=== PATIENT | male | born 1960 | race Caucasian/White ===

== ENCOUNTER 2024-10-15 07:21 | Emergency (ER) | payer OTHER, SELFPAY ==
[2024-10-15 07:27] VITALS: BP 168/112; PULSE 75; O2SAT 97; BMI 40.4
--- NOTE | 2024-10-15 07:33 | ED.UPPEXIN1 ---
HPI HPI - Extremity Injury (Upper) General Chief Complaint: Extremity Injury, Upper Stated Complaint: POSSIBLE BROKEN WRIST Time Seen by Provider: 10/15/24 07:32 Source: patient Mode of arrival: walk-in Limitations: no limitations History of Present Illness HPI narrative: The patient comes to the ER with a left arm pain that started after he fell down, there is a family physician, he is coming after he slipped while he was cleaning his car from ice. The patient is complaining only of left hand pain and left wrist pain Related Data Previous Rx's ?Medication ?Instructions ?Recorded oxycodone-acetaminophen 5 mg-325 1 tab PO Q8H PRN pain 3 days #9 10/15/24 mg tablet (Percocet) tabs Allergies Allergy/AdvReac Type Severity Reaction Status Date / Time erythromycin base Allergy Severe Hives Verified 10/15/24 07:52 Opioid HPI Opioid Management Most Recent Pain and Opioid Data: Last Pain Scale 8 10/15/24 07:33 10/15/24 Last ED Pain Assessment 10/15/24 07:33 Review of Systems ROS Status of ROS 10 or more systems reviewed and unremarkable except as noted in history and below PFSH PFSH Social History Little interest or pleasure in doing things: not at all Feeling down, depressed, or hopeless: not at all Exam Narrative Exam Narrative: Nurses notes and vital signs reviewed and patient is not hypoxic. Left upper extremity; the patient have tenderness upon palpation of the scaphoid area as well as the whole wrist area The patient have no vascular injury detected good capillary refill General: Well-appearing and in no apparent distress. Skin: Warm, dry, no pallor noted. No rash. Head: Normocephalic, atraumatic. Neck: Supple, non-tender. Musculoskeletal: normal ROM, no calf or popliteal tenderness, no lower extremity edema/swelling Constitutional Vital Signs, click to edit/add: Last Vital Signs Pulse 75 10/15/24 07:27 Resp 20 10/15/24 07:27 BP 158/98 H 10/15/24 09:10 Pulse Ox 97 10/15/24 07:27 Course Vital Signs Vital signs: Vital Signs Pulse Rate 75 10/15/24 07:27 Respiratory Rate 20 10/15/24 07:27 Blood Pressure 168/112 H 10/15/24 07:27 Pulse Oximetry 97 10/15/24 07:27 Pulse Rate 75 01/20/25 07:27 Respiratory Rate 20 10/15/24 07:27 Blood Pressure 158/98 H 10/15/24 09:10 Pulse Oximetry 97 10/15/24 07:27 MDM - Extremity Injury (Upper) MDM Narrative Medical decision making narrative: The patient x-ray of the left wrist and forearm and hand showed that the patient have a distal radial impacted angulated fracture and also styloid process of the ulna was fractured The patient case was discussed with Dr. Brown and orthopedic service and he mentioned that the patient mostly will need surgery he will follow-up with him on Tuesday in his [place] office Patient had a volar splint applied Sling provided and Percocet for pain control Patient mostly will need surgery The patient is to follow up with primary care physician in next 2-3 days or to return to the emergency department should any of the signs or symptoms worsen or new symptoms develop. The patient agrees with the following Diagnosis and Treatment plan and the patient will be discharged home. Discharge Plan Discharge Chief Complaint: Extremity Injury, Upper Clinical Impression: Fracture of distal end of radius with dorsal angulation, Fracture of ulnar styloid Patient Disposition: Home, Self-Care Time of Disposition Decision: 08:58 Condition: Good Prescriptions / Home Meds: New oxycodone-acetaminophen [Percocet] 5-325 mg tablet 1 tab PO Q8H PRN (Reason: pain) 3 Days Qty: 9 0RF Print Language: South African Instructions: Arm Fracture in Adults (DC) Additional Instructions: please call Dr Brown for follow up appointment Tuesday in [place] office Referrals: Physician,Non-Staff, [Primary Care Provider] - 1 week Redd Brown MD [Physician] - As soon as possible ([address] [place] [address] [address] [address] phone number ) Discharge Date/Time: 10/15/24 09:13
--- NOTE | 2024-10-15 07:53 | XR_ITS ---
[address] [address] Patient Name: JOHN BUSTAMANTE MRN: [id number] date: 1960 Sex: M Assigned Patient Location: ER Current Patient Location: ER Accession/Order Number: [id number] Exam Date: 10/15/2024 07:45 Report Date: 10/15/2024 08:06 At the request of: SETH DELEON Procedure: XR forearm LT 2V EXAM: XR forearm LT 2V, XR wrist LT 2V, XR hand LT 2V HISTORY: fall pain COMPARISON: None. XR/XR forearm LT 2V IMPRESSION: 1. There is a comminuted and displaced as well as impacted fracture of the distal radial metaphysis. There is mild dorsal angulation. 2. Mildly displaced ulnar styloid fracture. Electronically authenticated by: TAMMIE ORTEGA Date: 10/15/2024 08:06
--- NOTE | 2024-10-15 07:53 | XR_ITS ---
[address] [address] Patient Name: JOHN BUSTAMANTE MRN: [id number] date: 1960 Sex: M Assigned Patient Location: ER Current Patient Location: ER Accession/Order Number: [id number] Exam Date: 10/15/2024 07:45 Report Date: 10/15/2024 08:06 At the request of: SETH DELEON Procedure: XR hand LT 2V EXAM: XR forearm LT 2V, XR wrist LT 2V, XR hand LT 2V HISTORY: fall pain COMPARISON: None. XR/XR hand LT 2V IMPRESSION: 1. There is a comminuted and displaced as well as impacted fracture of the distal radial metaphysis. There is mild dorsal angulation. 2. Mildly displaced ulnar styloid fracture. Electronically authenticated by: TAMMIE ORTEGA Date: 10/15/2024 08:06
--- NOTE | 2024-10-15 07:53 | XR_ITS ---
[address] [address] Patient Name: JOHN BUSTAMANTE MRN: [id number] date: 1960 Sex: M Assigned Patient Location: ER Current Patient Location: ER Accession/Order Number: [id number] Exam Date: 10/15/2024 07:45 Report Date: 10/15/2024 08:06 At the request of: SETH DELEON Procedure: XR wrist LT 2V EXAM: XR forearm LT 2V, XR wrist LT 2V, XR hand LT 2V HISTORY: fall pain COMPARISON: None. XR/XR wrist LT 2V IMPRESSION: 1. There is a comminuted and displaced as well as impacted fracture of the distal radial metaphysis. There is mild dorsal angulation. 2. Mildly displaced ulnar styloid fracture. Electronically authenticated by: TAMMIE ORTEGA Date: 10/15/2024 08:06
[2024-10-15 09:10] VITALS: BP 158/98
== END 2024-10-15 09:13 | disposition home or self-care (01) ==
PROVIDERS: Emergency Provider Emergency Medicine
DX: S52.592A Other fractures of lower end of left radius, initial encounter for closed fracture (principal); S52.612A Displaced fracture of left ulna styloid process, initial encounter for closed fracture; W00.0XXA Fall on same level due to ice and snow, initial encounter
CPT/HCPCS: 29125; 73090; 73100; 73120; 99283

== ENCOUNTER 2024-10-18 08:02 | Outpatient (OUT) | payer OTHER, SELFPAY ==
--- OUTSIDE RECORDS SUMMARY | 2024-10-18 08:07 | XMS_ITS | CCD ---
Author Organization [facility] ion Partnership [facility] Care Team Providers Care Managed Care Analyst Name Role Phone Bobby Reyes Admitting Unavailable Bobby Reyes Attending Unavailable Provider, None Primary Care Unavailable Results Test Name Value Interpretation Reference Range Facil ity Lab - Other Lab Resultson Lab - Other Lab Results [id number]#[id number] Normal [facility] QuantiFERON-TB Gold Pluson 0 11-01-2023 QuantiFERON Incubation Incubation performed. Invalid Interpretation Code [facility] Comment on above: Result Comment: Perf ormed At: [employer] [address] [id number] Carlos Bender PhD Ph:[phone] Performed By: #### 9 [id number], [id number] #### [facility] (DEFAULT) [address] [place] [address] QuantiFERON-TB Gold Plus Negative Invalid Interpretation Code Negative [facility] Comment on above: Result Comment: No r esponse to M tuberculosis antigens detected. Infection with M tuberculosis is unlikely, but high risk individuals should be considered for additional testing (ATS/IDSA/CDC Clinical Practice Guidelines, 2017). The reference range is an Antigen minus Nil result of <0.35 IU/mL. Chemiluminescence immunoassay methodology Performed At: [email or web address] [id number] Carlos Bender PhD Ph:[phone] Performed By: #### 5 [id number], [id number] #### [facility] (DEFAULT) [address] [place] [address] HBSab Qnt LCon 10-29-2023 Hep B Surf Ab Quant LC <3.1 Low Immunity>9.9 [facility] Comment on above: Result Comment: Stat us of Immunity Anti-HBs Level Inconsistent with Immunity 0.0 - 9.9 Consistent with Immunity >9.9 Performed At: [facility] [address] [place] [id number] Carlos Bender PhD Ph:[phone] Performed By: #### 7 [id number] #### [facility] (DEFAULT) [address] [place] [address] Measles/Mumps/Rubella Immuni ty LCon 10-29-2023 Mumps Abs, IgG LC <9.0 Low Immune >10.9 [facility] Comment on above: Result Comment: Nega tive <9.0 Equivocal 9.0 - 10.9 Positive >10.9 A positive result generally indicates past exposure to Mumps virus or previous vaccination. Performed At: [facility] [address] [place], [place] [id number] Carlos Bender PhD Ph:[phone] Performed By: #### 0 [id number], [id number] #### [facility] (DEFAULT) [address] [place] [address] Rubella Antibodies, IgG LC 25.70 index Invalid Interpretation Code Immune >0.99 [facility] Comment on above: Result Comment: Non- immune <0.90 Equivocal 0.90 - 0.99 Immune >0.99 Performed By: #### 1 [id number], [id number], [id number] #### [facility] (DEFAULT) [address] [place] [address] Rubeola Ab, IgG, EIA LC >300.0 Invalid Interpretation Code Immune >16.4 [facility] Comment on above: Result Comment: Nega tive <13.5 Equivocal 13.5 - 16.4 Positive >16.4 Presence of antibodies to Rubeola is presumptive evidence of immunity except when acute infection is suspected. Performed By: #### 4 [id number], [id number] #### [facility] (DEFAULT) [address] [place] [address] Nicotine Metabolite, Urine L Con 10-29-2023 Cotinine LC Negative Invalid Interpretation Code Aectbo=551 [facility] Comment on above: Result Comment: Perf ormed At: [facility] [place] [address] [place], [place] [id number] Alec Martin PhD Ph:[phone] Performed By: #### 1 [id number], [id number] #### [facility] (DEFAULT) [address] [place] [address] Drug Test Panel 10on 024 Drug Screen Complete Collected Normal [facility] Comment on above: Performed By: #### 1 [id number], [id number] #### [facility] (DEFAULT) [address] [place] [address] Encounters Encounter Date Encounter Type Care Provider Facility Start: 10-28-2023 End: 10-29-2023 ambulatory Bobby Damian [place] Facility:[facility] Summary Purpose Family History No Family History Records Found Advance Directives No Advanced Directives Records Found Additional Source Comments (unrecognized sect ion and content) No Status Records Found INFORMATION SOURCE (unrecogn ized section and content) DATE CREATED AUTHOR 11/01/2023 [facility] FOR RECORDS PERTAINING TO PATIENTS WHO ARE OR HAVE BEEN ENROLLED IN A CHEMICAL DEPENDENCY/SUBSTANCEABUSE PROGRAM, SOME INFORMATION MAY BE OMITTED. This clinical summary was aggregated from multiple sources. Caution should be exercised in using it in the provision of clinical care. This summary normalizes information from multiple sources, and as a consequence, information in this document may materially change the coding, format and clinical context of patient data. In addition, data may be omitted in some cases. CLINICAL DECISIONS SHOULD BE BASED ON THE PRIMARY CLINICAL RECORDS. [employer] provides no warranty or guarantee of the accuracy or completeness of information in this document.
--- NOTE | 2024-10-18 08:12 | ECG_ITS ---
The [facility] Test Date: 2024-10-18 Pat Name: JOHN BUSTAMANTE Department: Room: - Gender: Male Resolution Specialist: : 1960 Requested By: Redd Brown Order Number: [id number] Reading MD: JENNI HSU Measurements Intervals [place] Rate: 52 P: 13 UT: 196 QRS: 9 QRSD: 118 T: -27 QT: 404 QTc: 379 Interpretive Statements SINUS BRADYCARDIA MODERATE INTRAVENTRICULAR CONDUCTION DELAY [110+ ms QRS DURATION] NONSPECIFIC T-WAVE ABNORMALITY, can't exclude inferolateral ischemia No previous ECG available for comparison Electronically Signed On 10-18-2024 17:54:34 EST by JENNI HSU
--- NOTE | 2024-10-18 08:12 | XR_ITS ---
The [address] [address] Patient Name: JOHN BUSTAMANTE MRN: [id number] date: 1960 Sex: M Assigned Patient Location: [facility] Current Patient Location: [facility] Accession/Order Number: [id number] Exam Date: 10/18/2024 09:10 Report Date: 10/18/2024 10:50 At the request of: [employer]ON [employer] Procedure: XR chest 2V EXAMINATION: XR chest 2V HISTORY: Preop exam COMPARISON: No relevant comparison available. TECHNIQUE: PA and lateral FINDINGS: LUNGS: No significant pulmonary parenchymal abnormalities. VASCULATURE: No increased pulmonary vasculature. PLEURA: No pneumothorax, effusion, or pleural thickening. CARDIAC: No cardiomegaly or cardiac silhouette abnormality. MEDIASTINUM: No visible mass or adenopathy. Left bipolar pacemaker BONES: No fracture or visible bone lesion. OTHER: Negative. XR/XR chest 2V IMPRESSION: No acute cardiopulmonary process Electronically authenticated by: BREEZY LOPEZ Date: 10/18/2024 10:50
[2024-10-18 09:25] LABS: Basophils Percent Auto 0.5 % (0.2-2.0); Eosinophils Absolute Auto 0.3 10^3/uL (0.0-0.7); Eosinophils Percent Auto 5.4 % (0.9-7.0); Hematocrit 44.3 % (42.0-54.0); Hemoglobin 15.1 g/dL (14.0-18.0); Immature Granulocytes Abs Auto 0.02 10^3/uL (0.00-0.03); Immature Granulocytes Pct Auto 0.3 % (0.0-0.5); Lymphocytes Absolute Auto 1.3 10^3/uL (1.2-3.8); Lymphocytes Percent Auto 23.3 % (20.5-60.0); Mean Corpuscular HGB Conc 34.1 g/dL (29.9-35.2); Mean Corpuscular Hemoglobin 32.5 pg (25.9-34.0); Mean Corpuscular Volume 95.5 fL (80.0-94.0); Mean Platelet Volume 10.4 fL (9.5-13.5); Monocytes Absolute Auto 0.5 10^3/uL (0.3-0.8); Neutrophils Absolute Auto 3.6 10^3/uL (1.4-6.5); Neutrophils Percent Auto 62.5 % (43.0-75.0); Platelet Count 134 10^3/uL (150-450); Red Blood Count 4.64 10^6/uL (4.70-6.10); Red Cell Distribution Width 12.5 % (11.0-15.0); White Blood Count 5.8 10^3/uL (4.0-11.0)
[2024-10-18 09:30] LABS: INR 1.02; Partial Thromboplastin Time 28.5 sec (22.3-36.2); Prothrombin Time 10.8 sec (9.0-11.6)
[2024-10-18 09:52] LABS: Anion Gap 14.3; BUN Creatinine Ratio 13.3; Calcium 8.9 mg/dL (8.5-10.1); Carbon Dioxide 22.4 mmol/L (21.0-32.0); Chloride 106 mmol/L (98-107); Estimated GFR (African America >60 (>=60 mL/min/1.73m^2); Estimated GFR (Non-African Ame >60 (>=60 mL/min/1.73m^2); Glucose 140 mg/dL (74-106); Potassium 4.7 mmol/L (3.5-5.1); Sodium 138 mmol/L (136-145)
== END 2024-10-18 08:03 | disposition home or self-care (01) ==
LOC: PST 08:03
PROVIDERS: Visit Provider Orthopaedic Surgery
DX: Z01.810 Encounter for preprocedural cardiovascular examination (principal); Z01.812 Encounter for preprocedural laboratory examination; S52.552A Other extraarticular fracture of lower end of left radius, initial encounter for closed fracture; S52.612A Displaced fracture of left ulna styloid process, initial encounter for closed fracture; I10 Essential (primary) hypertension
CPT/HCPCS: 71046; 80048; 85025; 85610; 85730; 93005

== ENCOUNTER 2024-10-18 12:56 | Outpatient (OUT) | payer OTHER, SELFPAY ==
--- NOTE | 2024-10-18 13:12 | CA_ITS ---
Patient Name: JOHN BUSTAMANTE MR#: [id number] : 1960 Exam Date: 10/18/2024 Ordering Doctor: DR SEBAS HIDALGO M.D. ECHOCARDIOGRAM REPORT PROCEDURE: CA ECHO DOPPLER COMPLETE INDICATIONS: Pre op noncardiac surgery COMPARISON: None. DESCRIPTION: COMPLETE ECHOCARDIOGRAM Real-time transthoracic echocardiography with 2D, M-mode, spectral and color flow Doppler performed. QUALITY: Technical quality was good. LEFT VENTRICLE: Normal chamber size. Moderate to severe left ventricular hypertrophy. LV EF: Global left ventricular systolic function is low normal; visually estimated ejection fraction is 50-55%. Abnormal septal motion; likely related to paced rhythm. DIASTOLIC: Grade 1 diastolic dysfunction. ATRIAL SEPTUM: Inadequately seen. LEFT ATRIUM: Mild dilatation. RIGHT ATRIUM: Mild dilatation. Pacer wire present. RIGHT VENTRICLE: Normal chamber size. Normal right ventricular systolic function. Pacer wire present. TRICUSPID VALVE: Normal mobility and thickness. No stenosis with trivial regurgitation. Mild pulmonary hypertension. RVSP 36mmHg MITRAL VALVE: Normal mobility and thickness. No evidence of mitral valve stenosis. There is no mitral annular calcification. Mild mitral regurgitation. AORTIC VALVE: Normal trileaflet appearance. Mildly calcified aortic valve. Normal leaflet mobility. No evidence of aortic valve stenosis. Trivial aortic regurgitation. AORTIC ROOT: Normal diameter and appearance. Mild dilatation of the ascending aorta measuring 3.7cm. PULMONIC VALVE: Normal thickness and mobility. No stenosis. Trivial regurgitation. PERICARDIUM: Anterior free space; trivial effusion versus fat pad. IVC: Collapses with inspirations. Normal size. CONCLUSION: 1. Global left ventricular systolic function is low normal limits; visually estimated ejection fraction is 50 to 55% 2. Normal right ventricular size and systolic function 3. Moderate to severe left ventricular hypertrophy 4. Grade 1 diastolic dysfunction 5. Biatrial dilatation 6. Mildly elevated right ventricular systolic pressure; RVSP 36 mmHg 7. Mild mitral regurgitation 8. Mild dilatation of the ascending aorta 9. Anterior free space; trivial effusion versus fat pad Adult Echocardiography Procedure Report Left Ventricle LVEDD (3.7 - 5.6 cm): 5.52 cm LVESD (2.2 - 4.0 cm): 4.15 cm LVIVS thickness (0.6 - 1.2 cm): 1.54 cm LVPW thickness (0.5 - 1.0 cm): 1.64 cm e': 0.09 m/s E - e': 6.43 LVOT Max Gradient: 3.15 mm[Hg] LVOT Area (cm2): 0.89 m/s Peak Velocity (LVOT): 0.89 m/s Mean Velocity (LVOT): 0.64 m/s LVOT Diameter 2.26 cm Left Atrium LA Volume Index (2D A2C): 42.78 ml/m2 Left Atrium Systolic Dimension: 4.43 cm Mitral Valve MV E to A Ratio: 0.64 Mitral Valve A-Wave Peak Velocity: 0.86 m/s Mitral Valve E-Wave Peak Velocity: 0.55 m/s Right Ventricle RV Internal Diastolic Dimension: 3.57 cm Aorta AO Root Diam: 3.75 cm Ascending Ao Diam: 3.74 cm Aortic Valve AoV Area (Peak Manuel): 2.24 cm2, 2.24 cm2 AoV Area (VTI): 2.32 cm2, 2.32 cm2 Peak Velocity(Antegrade Flow): 1.59 m/s Peak Gradient(Antegrade Flow): 10.06 mm[Hg] Mean Velocity(Antegrade Flow): 1.11 m/s Mean Gradient(Antegrade Flow): 5.56 mm[Hg] Velocity Time Integral: 37.22 cm Tricuspid Valve Peak Velocity (Regurgitant Flow): 2.41 m/s, 2.46 m/s, 2.86 m/s Pulmonic Valve Mean Gradient: 3.61 mm[Hg], 4.24 mm[Hg], 2.92 mm[Hg] Mean Velocity: 0.88 m/s, 0.99 m/s, 0.77 m/s Peak Velocity: 1.29 m/s Peak Gradient: 6.65 mm[Hg], 7.06 mm[Hg], 6.15 mm[Hg] Right Atrium Right Atrium Systolic Pressure: 76.67 ml, 76.67 ml Dictated by: Sebas Hidalgo M.D. on 10/18/2024 at 15:31 Approved by: Sebas Hidalgo M.D. on 10/18/2024 at 15:39
--- OUTSIDE RECORDS SUMMARY | 2024-10-18 13:25 | XMS_ITS | CCD ---
Author Organization [facility]ini[facility] Care Team Providers Care Med Dir Name Role Phone Bobby Reyes Admitting Unavailable Bobby Reyes Attending Unavailable Provider, None Primary Care Unavailable Results Test Name Value Interpretation Reference Range Facil ity Lab - Other Lab [facility] Lab - Other Lab Results [id number] 345C#1.00OTGTIFF Normal [facility] QuantiFERON-TB Gold Pluson 0 11-01-2023 QuantiFERON Incubation Incubation performed. Invalid Interpretation Code [facility] Comment on above: Result Comment: Perf ormed At: [employer] [address] [id number] Carlos Bender PhD Ph:[phone] Performed By: #### 1 [id number], [id number] #### [facility] (DEFAULT) [address] [place] [address] QuantiFERON-TB Gold Plus Negative Invalid Interpretation Code Negative [facility] Comment on above: Result Comment: No r esponse to M tuberculosis antigens detected. Infection with M tuberculosis is unlikely, but high risk individuals should be considered for additional testing (ATS/IDSA/CDC Clinical Practice Guidelines, 2017). The reference range is an Antigen minus Nil result of <0.35 IU/mL. Chemiluminescence immunoassay methodology Performed At: [facility] [id number] Carlos Bender PhD Ph:[phone] Performed By: #### 6 [id number], [id number] #### [facility] (DEFAULT) [address] [place] [address] HBSab Qnt LCon 10-29-2023 Hep B Surf Ab Quant LC <3.1 Low Immunity>9.9 [facility] Comment on above: Result Comment: Stat us of Immunity Anti-HBs Level Inconsistent with Immunity 0.0 - 9.9 Consistent with Immunity >9.9 Performed At: [facility] [address] [place] [id number] Carlos Bender PhD Ph:[phone] Performed By: #### 3 [id number], [id number], [id number] #### [facility] (DEFAULT) [address] [place] [address] Measles/Mumps/Rubella Immuni ty LCon 10-29-2023 Mumps Abs, IgG LC <9.0 Low Immune >10.9 [facility] Comment on above: Result Comment: Nega tive <9.0 Equivocal 9.0 - 10.9 Positive >10.9 A positive result generally indicates past exposure to Mumps virus or previous vaccination. Performed At: [facility] [address] [place], [place] [id number] Carlos Bender PhD Ph:[phone] Performed By: #### 0 [id number], [id number], [id number] #### [facility] (DEFAULT) [address] [place] [address] Rubella Antibodies, IgG LC 25.70 index Invalid Interpretation Code Immune >0.99 [facility] Comment on above: Result Comment: Non- immune <0.90 Equivocal 0.90 - 0.99 Immune >0.99 Performed By: #### 8 [id number], [id number], [id number] #### [facility] (DEFAULT) [address] [place] [address] Rubeola Ab, IgG, EIA LC >300.0 Invalid Interpretation Code Immune >16.4 [facility] Comment on above: Result Comment: Nega tive <13.5 Equivocal 13.5 - 16.4 Positive >16.4 Presence of antibodies to Rubeola is presumptive evidence of immunity except when acute infection is suspected. Performed By: #### 4 [id number], [id number], [id number] #### [facility] (DEFAULT) [address] [place] [address] Nicotine Metabolite, Urine L Con 10-29-2023 Cotinine LC Negative Invalid Interpretation Code Nowans=274 [facility] Comment on above: Result Comment: Perf ormed At: [facility] [place] [address] [place], [place] [id number] Alec Martni PhD Ph:[phone] Performed By: #### 1 [id number], [id number] #### [facility] (DEFAULT) [address] [place] [address] Drug Test Panel 10on 024 Drug Screen Complete Collected Normal [facility] Comment on above: Performed By: #### 1 [id number], [id number] #### [facility] (DEFAULT) [address] [place] [address] Encounters Encounter Date Encounter Type Care Provider Facility Start: 10-28-2023 End: 10-29-2023 ambulatory Bobby Damian Conway Facility:[facility] Summary Purpose Family History No Family History Records Found Advance Directives No Advanced Directives Records Found Additional Source Comments (unrecognized sect ion and content) No Status Records Found INFORMATION SOURCE (unrecogn ized section and content) DATE CREATED AUTHOR 11/01/2023 [facility] FOR RECORDS PERTAINING TO PATIENTS WHO ARE [...] BE BASED ON THE PRIMARY CLINICAL RECORDS. [employer] provides no warranty or guarantee of the accuracy or completeness of information in this document.
== END 2024-10-18 12:57 | disposition home or self-care (01) ==
LOC: CARD 13:08
PROVIDERS: Visit Provider Internal Medicine Interventional Cardiology
DX: Z01.818 Encounter for other preprocedural examination (principal); I34.0 Nonrheumatic mitral (valve) insufficiency; Z01.812 Encounter for preprocedural laboratory examination; Z01.810 Encounter for preprocedural cardiovascular examination; S52.552A Other extraarticular fracture of lower end of left radius, initial encounter for closed fracture; S52.612A Displaced fracture of left ulna styloid process, initial encounter for closed fracture; I10 Essential (primary) hypertension
CPT/HCPCS: 71046; 80048; 85025; 85610; 85730; 93005; 93306; 93356

== ENCOUNTER 2024-10-22 11:50 | Day surgery (SDC) | payer OTHER, SELFPAY ==
[2024-10-18 08:30] VITALS: BP 174/97; PULSE 63; TEMP 36.2; O2SAT 95; BMI 43.0
--- NOTE | 2024-10-18 08:58 | PM.PRESUREVA ---
History of Present Illness History of Present Illness Chief complaint: DISPLACED FX LEFT RADIUS AND ULNA Narrative: Mr. Christopher Bhandari 63 year old male. Presents to presurgical testing After he had a slip and fall injury catching himself with his left upper extremity resulting in displaced distal radius extra-articular and ulnar styloid fracture. He reports pain to the left arm with range of motion. He presents today with splint in place. He is scheduled for open reduction internal fixation of left distal radius and ulnar styloid. He is scheduled with Dr. Brown for surgery on 10/22/2024 Review of Systems ROS Narrative REVIEW OF SYSTEMS: Negative except as stated in HPI, ten or more systems reviewed. Constitutional: No fever, chills, weakness ENT: No sore throat or epistaxis Cardiovascular: No edema, chest pain, palpitations, or activity intolerance Respiratory: No shortness of breath, cough, or wheezing Musculoskeletal: Complains of left forearm and wrist pain and discomfort. Gastrointestinal: No abdominal pain, constipation, diarrhea, or vomiting Genitourinary: No dysuria or hematuria Neurological: No numbness, tingling, weakness, or headache Psychiatric: No mood changes PFSH PFSH Medical History (Updated 10/18/24 @ 08:40 by Fidelia Betancourt) Seasonal allergies ?J30.2 - Other seasonal allergic rhinitis (ICD-10) Myocardial infarction ?I21.9 - Acute myocardial infarction, unspecified (ICD-10) Hypertension ?I10 - Essential (primary) hypertension (ICD-10) Surgical History (Updated 10/18/24 @ 08:40 by Fidelia Betancourt) History of heart artery stent ?Z95.5 - Presence of coronary angioplasty implant and graft (ICD-10) History of tonsillectomy ?Z90.89 - Acquired absence of other organs (ICD-10) Family History (Updated 10/18/24 @ 08:37 by Fidelia Betancourt) Other Family history of aneurysm Family history of pancreatic cancer Social History (Updated 10/18/24 @ 08:29 by Fidelia Betancourt) Within the past year, how often did you have a drink containing alcohol: monthly or less Smoking status: Current every day smoker Non-prescribed substance use: denies use Previous occupational history: physician Highest level of school completed/degree received: Professional degree (MD, PATEL, DVM, DDS) Little interest or pleasure in doing things: not at all Feeling down, depressed, or hopeless: not at all Meds Home Medications and Allergies Home Medications ?Medication ?Instructions ?Recorded ?Confirmed ?Type oxycodone-acetaminophen 5 mg-325 1 tab PO Q8H PRN pain 3 days #9 10/15/24 Rx mg tablet (Percocet) tabs atenolol 100 mg tablet mg 10/18/24 History fexofenadine 180 mg tablet 180 mg PO DAILY 10/18/24 10/18/24 History (Miladys Allergy) naproxen 500 mg tablet 500 mg PO DAILY PRN pain 10/18/24 10/18/24 History Allergies Allergy/AdvReac Type Severity Reaction Status Date / Time erythromycin base Allergy Severe Hives Verified 10/18/24 08:22 scallops Allergy Severe Anaphylaxis Verified 10/18/24 08:22 peanuts Allergy Mild Anaphylaxis Uncoded 10/18/24 08:22 Exam Narrative Exam Narrative: Constitutional: Awake, alert, comfortable, well-appearing, nontoxic, interactive, vital signs as charted Head: Normocephalic, atraumatic Eyes: Conjunctiva and lids normal to inspection, pupils normal ENT: Tympanic membranes pearly abel, nonerythematous, noninjected, naris patent, posterior oropharynx clear, oral mucosa moist Neck: Supple, normal appearance, normal range of motion, no meningeal signs, no lymphadenopathy Respiratory: No respiratory distress, breath sounds clear Cardiovascular: Regular rate and rhythm, strong and regular heart tones Abdomen: Nontender, normal bowel sounds, soft, no CVA tenderness Musculoskeletal: Normal gait, please see Dr. Brown's thorough examination of his left wrist and forearm . He has a splint to the left upper extremity sensation is intact to the fingers brisk capillary refill Skin: No rashes or induration, no lesions, only visible skin inspected Neuro: No neurological deficits, normal sensation Psychiatric: Oriented ?3, normal affect Constitutional Vital Signs, click to edit/add: Last Vital Signs Temp 97.1 F L 10/18/24 08:30 Pulse 63 10/18/24 08:30 Resp 20 10/18/24 08:30 BP 174/97 H 10/18/24 08:30 Pulse Ox 95 10/18/24 08:30 O2 Del Method Room Air 10/18/24 08:30 Assessment and Plan Assessment and Plan (1) Fracture of ulnar styloid: (2) Fracture of distal end of radius with dorsal angulation: Plan Diagnosis displaced distal radius extra-articular and ulnar styloid fracture plan for procedure with Dr. Brown on October 22, 2024 for open reduction internal fixation of left distal radius and ulnar styloid fracture
[2024-10-22] VITALS (18 sets, daily range): BP systolic 99–169; BP diastolic 63–100; PULSE 64–88; TEMP 36.4–36.6; O2SAT 92–97; BMI 42.0
--- NOTE | 2024-10-22 | FL_ITS ---
[address] [address] Patient Name: JOHN BUSTAMANTE MRN: [id number] date: 1960 Sex: M Assigned Patient [facility] Current Patient Location: [facility] Accession/Order Number: [id number] Exam Date: 10/22/2024 13:20 Report Date: 10/29/2024 12:04 At the request of: HOUSTON TRAN Procedure: FL fluoroscopy <1hr NON-READ EXAM: FL fluoroscopy <1hr NON-READ HISTORY: TECHNIQUE: FINDINGS: Please see Operative Report. Electronically authenticated by: RADIOLOGIST NO Date: 10/29/2024 12:04
[2024-10-22 12:03] LABS: Basophils Percent Auto 0.6 % (0.2-2.0); Eosinophils Absolute Auto 0.3 10^3/uL (0.0-0.7); Eosinophils Percent Auto 3.7 % (0.9-7.0); Hematocrit 46.6 % (42.0-54.0); Hemoglobin 15.8 g/dL (14.0-18.0); Immature Granulocytes Abs Auto 0.02 10^3/uL (0.00-0.03); Immature Granulocytes Pct Auto 0.3 % (0.0-0.5); Lymphocytes Absolute Auto 1.8 10^3/uL (1.2-3.8); Lymphocytes Percent Auto 25.5 % (20.5-60.0); Mean Corpuscular HGB Conc 33.9 g/dL (29.9-35.2); Mean Corpuscular Hemoglobin 32.8 pg (25.9-34.0); Mean Corpuscular Volume 96.9 fL (80.0-94.0); Monocytes Absolute Auto 0.5 10^3/uL (0.3-0.8); Monocytes Percent Auto 7.7 % (1.7-12.0); Neutrophils Absolute Auto 4.4 10^3/uL (1.4-6.5); Neutrophils Percent Auto 62.2 % (43.0-75.0); Platelet Count 166 10^3/uL (150-450); Red Blood Count 4.81 10^6/uL (4.70-6.10); Red Cell Distribution Width 12.3 % (11.0-15.0)
[2024-10-22] MEDS: LACTATED RINGER'S SOLUTION 1,000 ML 50 ML IV ×2 (12:49→14:46)
[2024-10-22] MEDS: CEFAZOLIN SODIUM 2 GM/50 ML D5W PREMIX IV (13:24)
--- NOTE | 2024-10-22 13:44 | PC.NURSE ---
1256 TIME OUT PERFORMED, 2MG VERSED AND 50 MCG FENTANYL GIVEN AT THIS TIME 1301 CLEANING AREA TO LOOK WITH ULTRASOUND TO FIND INJECTION SITE. 1304 NEEDLE INJECTION BEGAN WITH ROPIVACAINE 1307 BLOCK IS COMPLETED. PATIENT TOLERATED WELL.
--- NOTE | 2024-10-22 14:57 | P.ORPRC_ITS ---
Procedure Note Date of procedure: 10/22/24 Pre-op diagnosis: Greater than 3 part intra-articular distal radius fracture Post-op diagnosis: same as pre-op Procedure: Procedure: 1. Open reduction internal fixation left distal radius fracture Detailed Description of Procedure: After informed consent was obtained the patient brought to the operating room where general anesthetic was administered. Preoperatively regional block was placed. A well-padded proximal arm tourniquet was placed on the right arm was prepped and draped in usual sterile fashion. The arm was elevated, exsanguinated, and the tourniquet was inflated to 200 mmHg. A 6 cm incision made overlying the flexor carpi radialis tendon overlying the distal radius. Blunt dissection was carried down through soft tissue. The flexor carpi radialis tendon was retracted ulnarly along with the flexor pollicis longus muscle and tendon. Pronator quadratus was incised in an L- shaped fashion off of the bone. Distal radius fracture was identified at this point and found to be intra-articular and comminuted. Using a combination of traction and manipulation and reduction was performed and appropriate reduction was confirmed under x-ray. A Synthes bi column distal radius plate was then placed and provisionally held into place with K wires. This was adjusted until the appropriate position was achieved under multiple fluoroscopy views. The plate was then first fixed with a 2.7 bicortical nonlocking screw in the oblong hole in the shaft. Holding the distal fragments reduced a total of 6 unicortical 2.4 mm locking screws were placed at the distal fragments followed by an additional 2 screws placed in the shaft in a bicortical locking fashion. Final x-rays in multiple planes revealed a reduced distal radius fracture with appropriate implant placement and lengths. Wound was irrigated. Pronator quadratus was repaired with an 0 Vicryl suture. Skin was closed with observable suture in layers. Well-padded dressing was placed followed by a fiberglass volar splint. Tourniquet was deflated. Patient was awakened and brought to the recovery room in stable condition. There are no intraoperative or immediate postoperative complications. Anesthesia: regional and General-LMA Surgeon: Redd Brown Estimated blood loss (mL): 5 Pathology: none sent Condition: stable Disposition: PACU
[2024-10-22] MEDS: HYDROMORPHONE HCL 0.5 MG/0.5 ML SYRINGE IV ×2 (15:07→15:13)
== END 2024-10-22 16:19 | disposition home or self-care (01) ==
PROVIDERS: Anesthesiology; Visit Provider Orthopaedic Surgery
PROC: (CPT 1830; principal; 2024-10-22 13:35)
DX: S52.572A Other intraarticular fracture of lower end of left radius, initial encounter for closed fracture (principal); W01.0XXA Fall on same level from slipping, tripping and stumbling without subsequent striking against object, initial encounter; Z95.5 Presence of coronary angioplasty implant and graft; I25.10 Atherosclerotic heart disease of native coronary artery without angina pectoris; F17.210 Nicotine dependence, cigarettes, uncomplicated; I10 Essential (primary) hypertension; I25.2 Old myocardial infarction
CPT/HCPCS: 25609; 36415; 64417; 76000; 85025; C1713; G0463; J0690; J1100; J1171; J2250; J2405; J2704; J2795; J3010

== ENCOUNTER 2024-11-05 08:39 | Outpatient (OUT) | payer OTHER, SELFPAY ==
--- NOTE | 2024-11-05 | XR_ITS ---
The [address] [address] Patient Name: JOHN BUSTAMANTE MRN: [id number] date: 1960 Sex: M Assigned Patient Location: Current Patient Location: Accession/Order Number: [id number] Exam Date: 11/05/2024 08:40 Report Date: 11/06/2024 06:58 At the request of: HOUSTON TRAN Procedure: XR wrist LT min 3V PROCEDURE: XR wrist LT min 3V HISTORY: LEFT WRIST PAIN COMPARISON: XR wrist left 10/15/2024 FINDINGS: BONES:Surgical repair of prior distal radius fracture via anterior plate and screws; no appreciable hardware fracture loosening. Normal alignment is maintained. Mildly displaced fracture of ulnar styloid process. SOFT TISSUES:No visible soft tissue swelling. EFFUSION:None visible. OTHER: Negative. XR/XR wrist LT min 3V IMPRESSION: 1. Surgical repair of distal radius fracture. 2. Stable mildly displaced fracture of ulnar styloid process. Electronically authenticated by: HOUSTON THKAKAR Date: 11/06/2024 06:58
--- OUTSIDE RECORDS SUMMARY | 2024-11-05 08:49 | XMS_ITS | CCD ---
Author Organization [facility] Care Team Providers Care Postpartum Rn Name Role Phone Bobby Reyes Admitting Unavailable Bobby Reyes Attending Unavailable Provider, None Primary Care Unavailable LISE HIDALGO Attending Unavailable Allergies Allergy Classification Reported Allergen(s) Allergy Type Date of Onset Reaction(s) Facility (1 source) Erythromycin; Translations: [ERYTHROMYCIN] Drug Allergy 10-18-2024 [facility] Repository Problems Problem Classification Problem Date Documented Da te Episodic/Chronic Essential hypertension (2 sources) Essential (primary) hypertension; Translations: [Essential (primary) hypertension] Onset: 10-18-2024 Chronic Results Test Name Value Interpretation Reference Range Facil ity 36on 10-19-2024 36 Emailed to [facility] pre-surgery testing. BMP ordered to be done in 1 week. Normal [facility] 36 Good morning, Dr. Hidalgo. [facility] anesthesia is asking that you document that patient is cleared for surgery AFTER you've reviewed echo. I spoke with patient today and he said he started himself on valsartan 80mg-hydrochloroth iazide 12.5mg daily. He will call me back to schedule device check. Normal [facility] Office Visiton 10-18-2024 Follow-up visit [id number] John Bustamante 1960 M Date Provider Department Center 10/18/2024 271-LISE HIDALGO [facility] No family history on file Level of Service:62676 ID OFFICE/OUTPATIENT NEW HIGH MDM 60 MINUTES [facility] Lab - Other Lab [facility] - Other Lab Results [id number] 345C#1.00OTGTIFF [facility] QuantiFERON-TB Gold Pluson 0 2-06-2024 QuantiFERON Incubation Incubation performed. Invalid Interpretation Code [facility] Comment on above: Result Comment: Perf ormed At: [address] [id number] Carlos Bender PhD Ph:[phone] Performed By: #### 5 [id number], [id number], [id number] #### [facility] (DEFAULT) [address] [place] [address] QuantiFERON-TB Gold Plus Negative Invalid Interpretation Code Negative [facility] Comment on above: Result Comment: No r esponse to M tuberculosis antigens detected. Infection with M tuberculosis is unlikely, but high risk individuals should be considered for additional testing (ATS/IDSA/CDC Clinical Practice Guidelines, 2017). The reference range is an Antigen minus Nil result of <0.35 IU/mL. Chemiluminescence immunoassay methodology Performed At: [address] [id number] Carlos Bender PhD Ph:[phone] Performed By: #### 6 [id number], [id number] #### [facility] (DEFAULT) [address] [place] [address] HBSab Qnt LCon 10-29-2023 Hep B Surf Ab Quant LC <3.1 Low Immunity>9.9 [facility] Comment on above: Result Comment: Stat us of Immunity Anti-HBs Level Inconsistent with Immunity 0.0 - 9.9 Consistent with Immunity >9.9 Performed At: [address] [id number] Carlos Bender PhD Ph:[phone] Performed By: #### 1 [id number], [id number], [id number] #### [facility] (DEFAULT) [address] [place] [address] Measles/Mumps/Rubella Immuni ty LCon 10-29-2023 Mumps Abs, IgG LC <9.0 Low Immune >10.9 [facility] Comment on above: Result Comment: Nega tive <9.0 Equivocal 9.0 - 10.9 Positive >10.9 A positive result generally indicates past exposure to Mumps virus or previous vaccination. Performed At: [facility] [id number] Carlos Bender PhD Ph:[phone] Performed By: #### 3 [id number], [id number] #### [facility] (DEFAULT) [address] [place] [address] Rubella Antibodies, IgG LC 25.70 index Invalid Interpretation Code Immune >0.99 [facility] Comment on above: Result Comment: Non- immune <0.90 Equivocal 0.90 - 0.99 Immune >0.99 Performed By: #### 6 [id number], [id number], [id number] #### [facility] (DEFAULT) [address] [place] [address] Rubeola Ab, IgG, EIA LC >300.0 Invalid Interpretation Code Immune >16.4 [facility] Comment on above: Result Comment: Nega tive <13.5 Equivocal 13.5 - 16.4 Positive >16.4 Presence of antibodies to Rubeola is presumptive evidence of immunity except when acute infection is suspected. Performed By: #### 8 [id number], [id number], [id number] #### [facility] (DEFAULT) [address] [place] [address] Nicotine Metabolite, Urine L Con 10-29-2023 Cotinine LC Negative Invalid Interpretation Code [id number] [facility] Comment on above: Result Comment: Perf ormed At: [facility] [place] [address] [place], [place] [id number] Alec Martin PhD Ph:[phone] Performed By: #### 1 [id number], [id number] #### [facility] (DEFAULT) [address] [place] [address] Drug Test Panel 10on 024 Drug Screen Complete Collected Normal [facility] Comment on above: Performed By: #### 1 [id number], [id number] #### [facility] (DEFAULT) [address] [place] [address] Encounters Encounter Date Encounter Type Care Provider Facility Start: 10-18-2024 End: 10-18-[address] [facility] Start: 10-18-2024 End: 10-18-2024 Encounter for other preprocedural examination [facility] Start: 10-28-2023 End: 10-29-2023 ambulatory Bobby Reyes Facility:[facility] Payers Date Payer Category Payer Unknown [id number] Progress note 10-18-2024 Note Date & Type Note Facility 10-18-2024 Note Per [place]and reading patient's echo he would like to start him on losartan 25mg daily, and hydrochlorothiazide 25mg daily. He would like BMP in 1 week. Patient does not need stress test at this time. He does need scheduled for next available device clinic with [employer]. I CESAR on his VM asking him to call me back with preferred pharmacy. [facility] Progress note 10-18-2024 Note Date & Type Note Facility 10-18-2024 Note [facility] Note Chief Complaint: Establish care; preoperative evaluation HPI: John Bustamante is a 63 y.o. male HAVING WRIST SURGERY AND NEEDS CLEARANCE SOME EDEMA Fell on his left forearm and has a fracture requiring surgery this upcoming Tuesday. He is essentially asymptomatic; he states that he has no exertional chest pain, no significant shortness of breath, he is able to walk up and down a flight of stairs without significant chest pain. He states that he has knee pain when he walks stairs. No orthopnea, no paroxysmal external dyspnea. He has mild lower extremity edema bilaterally. Back in 2003, he suffered a non-ST elevation myocardial infarction and had PCI and stent placement in the area. At that time, he remembers his ejection fraction was 55%. 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 Past Medical History He has no past medical history on file. Surgical History He has no past surgical history on file. Social History He has no history on file for tobacco use, alcohol use, and drug use. Family History No family history on file. Allergies Patient has no allergy information on record. Medications No current outpatient medications on file. Last Recorded Vitals BP (!) 169/91 Pulse 62 Wt (!) 139 kg (307 lb) SpO2 97% Physical Examination: GENERAL: alert and oriented x3, well developed, in no acute distress. HEAD: atraumatic, normocephalic. EYES: DEDRICK, EOMI. NECK: trachea midline, no JVD present, no carotid bruits present. CARDIAC: S1, S2 present. RRR. No murmur, rubs, or gallops. RESPIRATORY: CTAB, no increased effort of breathing, no rales, rhonchi, or wheezing. ABDOMEN: soft, nontender, nondistended. EXTREMITIES: no lower extremity edema, peripheral pulses are 2+ bilaterally. No rash/skin discoloration present. NEURO: strength/sensation equal and symmetric in bilateral upper and lower extremities. PSYCH: appropriate mood, affect, and judgement. 12 lead EKG 10/18/2024: Sinus bradycardia, 52 bpm, intraventricular conduction delay, nonspecific ST-T wave changes, borderline EKG Assessment: Coronary artery disease History of non-ST elevation myocardial infarction s/p PCI and stent placement of the left anterior descending in 2003 Uncontrolled hypertension Current smoker BMI >30 Preoperative evaluation Plan: Dr. Bustamante has no symptoms with a METS level of above 4; planned orthopedic surgery is typically an intermediate risk procedure. In the absence of symptoms, he should be able to proceed at acceptable low to moderate risk; recommend strict heart rate and blood pressure control and avoidance of major fluid shifts However, since he has had no ischemic workup or echocardiogram for a number of years, it would be prudent to rule out significant wall motion abnormalities or reduced EF that may indicate occult worsening of his underlying coronary artery disease; as such, I will order a complete echocardiogram As long as his ejection fraction is preserved and he has no significant wall motion abnormalities or valvular abnormalities, he may proceed to surgery as described above If however, the echocardiogram shows any concerning findings, he may require further testing in the form of a stress test or invasive coronary angiography and this would require postponement of nonemergent orthopedic surgery We discussed the need for more aggressive blood pressure control; I agree with his plan for an ARB/diuretic combination. This would be much more effective than atenolol. Aggressive cardiovascular risk factor modification; blood pressure control, smoking cessation, increase physical activity, weight loss etc. is recommended I would be happy to see Dr. Bustamante on an as-needed basis Lise Hidalgo MD, MPH, [facility], [facility], [facility] Interventional Cardiology Pager Email: [email or web address] ADDENDUM: 10/19/2024 Echocardiogram reviewed; ejection fraction is 50 to 55%. He has moderate to severe left ventricular hypertrophy. Patient has a pacemaker. No significant valvular dysfunction. Has grade 1 diastolic dysfunction. Recommendations: He should be able to proceed with surgery at acceptable low to moderate risk; recommend strict heart rate and blood pressure control and avoidance of major fluid shifts yeison-operatively. Given LVH, add EFREN or ARB. Dr Bustamante will start Valsartan/hydrochlorothiazide. He will need a BMP a week after starting. Would not abruptly discontinue Atenolol particularly (more content not included)... [facility] Summary Purpose Family History No Family History Records FoundNo Family History Records Found Advance Directives No Advanced Directives Records FoundNo Advanced Directives Records Found Additional Source Comments (unrecognized sect ion and content) No Status Records FoundNo Status Records Found INFORMATION SOURCE (unrecogn ized section and content) DATE CREATED AUTHOR 11/01/2023 [facility] DATE CREATED AUTHOR AUTHOR'S ORGANIZ ATION 10/20/2024 [facility] FOR RECORDS PERTAINING TO PATIENTS WHO [...] BE BASED ON THE PRIMARY CLINICAL RECORDS. [employer] provides no warranty or guarantee of the accuracy or completeness of information in this document.
== END 2024-11-05 08:40 | disposition home or self-care (01) ==
LOC: EC 08:39
PROVIDERS: Visit Provider Orthopaedic Surgery
DX: S52.509D Unspecified fracture of the lower end of unspecified radius, subsequent encounter for closed fracture with routine healing (principal)
CPT/HCPCS: 73110

== ENCOUNTER 2024-12-03 08:33 | Outpatient (OUT) | payer OTHER, SELFPAY ==
--- NOTE | 2024-12-03 | XR_ITS ---
The [address] [address] Patient Name: JOHN BUSTAMANTE MRN: [id number] date: 1960 Sex: M Assigned Patient Location: Current Patient Location: Accession/Order Number: [id number] Exam Date: 12/03/2024 12:03 Report Date: 12/03/2024 12:19 At the request of: HOUSTON TRAN MD Procedure: XR wrist LT min 3V LEFT WRIST - 3 views COMPARISON: 11/05/2024 CLINICAL DATA: Left wrist pain. Follow-up fractures AP, lateral and oblique views were obtained. There is redemonstration of a volar plate at the distal radius. The underlying fracture shows no change in alignment. There is also redemonstration of a mildly displaced fracture at the tip of the ulnar styloid which is stable. No new fracture or dislocation is identified. There is continued soft tissue prominence and mild subcutaneous edema at the distal forearm and wrist. XR/XR wrist LT min 3V IMPRESSION: STABLE FRACTURES OF THE DISTAL RADIUS AND ULNA. Impression dictated by: Karla Howell M.D.12/03/2024 12:19 PM Dictation Location: [place] [address] Electronically authenticated by: [id number] Date: 12/03/2024 12:19
--- OUTSIDE RECORDS SUMMARY | 2024-12-03 08:55 | XMS_ITS | CCD ---
Author Organization [facility] Care Team Providers Care Model Making Supervisor Name Role Phone Bobby Reyes Admitting Unavailable Bobby Reyes Attending Unavailable Provider, None Primary Care Unavailable LISE HIDALGO Attending Unavailable Allergies Allergy Classification Reported Allergen(s) Allergy Type Date of Onset Reaction(s) Facility (1 source) Erythromycin; Translations: [ERYTHROMYCIN] Drug Allergy 10-18-2024 [facility] Repository Problems Problem Classification Problem Date Documented Da te Episodic/Chronic Essential hypertension (2 sources) Essential (primary) hypertension; Translations: [Essential (primary) hypertension] Onset: 10-18-2024 Chronic Results Test Name Value Interpretation Reference Range Facil ity 36on 10-19-2024 36 Emailed to [facility] pre-surgery testing. BMP ordered to be done in 1 week. Normal [facility] 36 Good morning, Dr. Hidalgo. [facility] anesthesia is asking that you document that patient is cleared for surgery AFTER you've reviewed echo. I spoke with patient today and he said he started himself on valsartan 80mg-hydrochloroth iazide 12.5mg daily. He will call me back to schedule device check. Normal [facility] Office Visiton 10-18-2024 Follow-up visit [id number] John Bustamante 1960 M Date Provider Department Center 10/18/2024 271-LISE HIDALGO CARD [facility] No family history on file Level of Service:14467 [place] OFFICE/OUTPATIENT NEW HIGH MDM [address] [facility] Lab - Other Lab [facility] - Other Lab Results [id number] 345C#1.00OTGTIFF [facility] QuantiFERON-TB Gold Pluson 0 2-06-2024 QuantiFERON Incubation Incubation performed. Invalid Interpretation Code [facility] Comment on above: Result Comment: Perf ormed At: [address] [id number] Carlos Bender PhD Ph:[phone] Performed By: #### 0 [id number], [id number], [id number] #### [facility] (DEFAULT) [address] [place] [address] QuantiFERON-TB Gold Plus Negative Invalid Interpretation Code Negative [facility] Comment on above: Result Comment: No r esponse to M tuberculosis antigens detected. Infection with M tuberculosis is unlikely, but high risk individuals should be considered for additional testing (ATS/IDSA/CDC Clinical Practice Guidelines, 2017). The reference range is an Antigen minus Nil result of <0.35 IU/mL. Chemiluminescence immunoassay methodology Performed At: [address] [id number] Carlos Bender PhD Ph:[phone] Performed By: #### 5 [id number], [id number], [id number] #### [facility] (DEFAULT) [address] [place] [address] HBSab Qnt LCon 10-29-2023 Hep B Surf Ab Quant LC <3.1 Low Immunity>9.9 [facility] Comment on above: Result Comment: Stat us of Immunity Anti-HBs Level Inconsistent with Immunity 0.0 - 9.9 Consistent with Immunity >9.9 Performed At: [address] [id number] Carlos Bender PhD Ph:[phone] Performed By: #### 8 [id number], [id number], [id number] #### [facility] (DEFAULT) [address] [place] [address] Measles/Mumps/Rubella Immuni ty LCon 10-29-2023 Mumps Abs, IgG LC <9.0 Low Immune >10.9 [facility] Comment on above: Result Comment: Nega tive <9.0 Equivocal 9.0 - 10.9 Positive >10.9 A positive result generally indicates past exposure to Mumps virus or previous vaccination. Performed At: [facility] [id number] Carlos Bender PhD Ph:[phone] Performed By: #### 6 [id number], [id number], [id number] #### [facility] (DEFAULT) [address] [place] [address]33 Rubella Antibodies, IgG LC 25.70 index Invalid Interpretation Code Immune >0.99 [facility] Comment on above: Result Comment: Non- immune <0.90 Equivocal 0.90 - 0.99 Immune >0.99 Performed By: #### 8 [id number], [id number], [id number] #### [facility] (DEFAULT) [address] [place] [address] 16065 Rubeola Ab, IgG, EIA LC >300.0 Invalid Interpretation Code Immune >16.4 [facility] Comment on above: Result Comment: Nega tive <13.5 Equivocal 13.5 - 16.4 Positive >16.4 Presence of antibodies to Rubeola is presumptive evidence of immunity except when acute infection is suspected. Performed By: #### 6 [id number], [id number], [id number] #### [facility] (DEFAULT) [address] [place] [address]863 Nicotine Metabolite, Urine L Con 10-29-2023 Cotinine LC Negative Invalid Interpretation Code [id number] [facility] Comment on above: Result Comment: Perf ormed At: [facility] [place] [address] [place], [place] [id number] Alec Martin PhD Ph:[phone] Performed By: #### 1 [id number], [id number] #### [facility] (DEFAULT) [address] [place] [address]793 Drug Test Panel 10on 024 Drug Screen Complete Collected Normal [facility] Comment on above: Performed By: #### 1 [id number], [id number] #### [facility] (DEFAULT) [address] [place] [address] Encounters Encounter Date Encounter Type Care Provider Facility Start: 10-18-2024 End: 10-18-2024 ambulatory [facility] Start: 10-18-2024 End: 10-18-2024 Encounter for other preprocedural examination [facility] Start: 10-28-2023 End: 10-29-2023 ambulatory Bobby Reyes Facility:[facility] Payers Date Payer Category Payer Unknown [id number] Progress note 10-18-2024 Note Date & Type [...] to call me back with preferred pharmacy. [facility] Progress note 10-18-2024 Note Date & Type Note Facility 10-18-2024 Note [facility] Cardiology Clinic Note Chief Complaint: Establish [...] an as-needed basis Lise Hidalgo MD, MPH, [facility], [facility], [facility] Interventional Cardiology Pager Email: [email or web address] ADDENDUM: 10/19/2024 Echocardiogram reviewed; ejection fraction is [...] discontinue Atenolol particularly (more content not included)... [facility] Summary Purpose Family History No Family History Records FoundNo Family History Records Found Advance Directives No Advanced Directives Records FoundNo Advanced Directives Records Found Additional Source Comments (unrecognized sect ion and content) No Status Records FoundNo Status Records Found INFORMATION SOURCE (unrecogn ized section and content) DATE CREATED AUTHOR 11/01/2023 [facility] DATE CREATED AUTHOR AUTHOR'S ORGANIZ ATION 10/20/2024 [facility] FOR RECORDS PERTAINING TO PATIENTS WHO [...] BE BASED ON THE PRIMARY CLINICAL RECORDS. [employer] provides no warranty or guarantee of the accuracy or completeness of information in this document.
== END 2024-12-03 08:34 | disposition home or self-care (01) ==
LOC: EC 08:33
PROVIDERS: Visit Provider Orthopaedic Surgery
DX: S52.572A Other intraarticular fracture of lower end of left radius, initial encounter for closed fracture (principal); S52.612A Displaced fracture of left ulna styloid process, initial encounter for closed fracture
CPT/HCPCS: 73110

== ENCOUNTER 2024-12-31 09:52 | Outpatient (OUT) | payer OTHER, SELFPAY ==
--- NOTE | 2024-12-31 | XR_ITS ---
[address] [address] Patient Name: JOHN BUSTAMANTE MRN: [id number] date: 1960 Sex: M Assigned Patient Location: Current Patient Location: Accession/Order Number: [id number] Exam Date: 12/31/2024 10:40 Report Date: 12/31/2024 10:41 At the request of: [place]ON TRAN MD Procedure: XR wrist LT min 3V 3 views left wrist plain film COMPARISON: 12/03/2024 HISTORY: Assessment of ORIF of left wrist ACUTE FINDINGS: Continued healing with stable alignment DEGENERATIVE CHANGE: Unremarkable SOFT TISSUE FINDINGS: Unremarkable JOINT EFFUSION: None POSTOP CHANGES: Stable hardware BONE MINERALIZATION: Adequate XR/XR wrist LT min 3V IMPRESSION: Interval healing with stable alignment and hardware. Impression dictated by: Manny Gómez M.D.12/31/2024 10:41 AM Dictation Location: [place] [address] Electronically authenticated by: [id number] Y Date: 12/31/2024 10:41
--- OUTSIDE RECORDS SUMMARY | 2024-12-31 10:02 | XMS_ITS | CCD ---
Author Organization [facility] Care Team Providers Care Offset Lithographic Press Setter Name Role Phone Bobby Reyes Admitting Unavailable Bobby Reyes Attending Unavailable Provider, None Primary Care Unavailable LISE HIDALGO Attending Unavailable Allergies Allergy Classification Reported Allergen(s) Allergy Type Date of Onset Reaction(s) Facility (1 source) Erythromycin; Translations: [ERYTHROMYCIN] Drug Allergy 10-18-2024 [facility] Repository Problems Problem Classification Problem Date Documented Da te Episodic/Chronic Essential hypertension (2 sources) Essential (primary) hypertension; Translations: [Essential (primary) hypertension] Onset: 10-18-2024 Chronic Results Test Name Value Interpretation Reference Range Facil ity 36on 10-19-2024 36 Emailed to [facility] pre-surgery testing. BMP ordered to be done in 1 week. Normal [facility] 36 Good morning, Dr. Hidalgo. [facility] anesthesia is asking that you document that patient is cleared for surgery AFTER you've reviewed echo. I spoke with patient today and he said he started himself on valsartan 80mg-hydrochloroth iazide 12.5mg daily. He will call me back to schedule device check. Normal [facility] Office Visiton 10-18-2024 Follow-up visit [id number] John Bustamante 1960 M Date Provider Department Center 10/18/2024 271-LISE HIDALGO CARD [facility] No family history on file Level of Service:26178 [place] OFFICE/OUTPATIENT NEW HIGH MDM 60 MINUTES [facility] Lab - Other Lab [facility] - Other Lab Results [id number] 345C#1.00OTGTIFF [facility] QuantiFERON-TB Gold Pluson 0 2-06-2024 QuantiFERON Incubation Incubation performed. Invalid Interpretation Code [facility] Comment on above: Result Comment: Perf ormed At: [address] [id number] Carlos Bender PhD Ph:[phone] Performed By: #### 8 [id number], [id number], [id number] #### [facility] (DEFAULT) [address] [place] [address] QuantiFERON-TB Gold Plus Negative Invalid Interpretation Code Negative [facility] Comment on above: Result Comment: No r esponse to M tuberculosis antigens detected. Infection with M tuberculosis is unlikely, but high risk individuals should be considered for additional testing (ATS/IDSA/CDC Clinical Practice Guidelines, 2017). The reference range is an Antigen minus Nil result of <0.35 IU/mL. Chemiluminescence immunoassay methodology Performed At: [address] [id number] Carlos Bender PhD Ph:[phone] Performed By: #### 5 [id number], [id number], [id number] #### [facility] (DEFAULT) [address] [place] [address] HBSab Qnt LCon 10-29-2023 Hep B Surf Ab Quant LC <3.1 Low Immunity>9.9 [facility] Comment on above: Result Comment: Stat us of Immunity Anti-HBs Level Inconsistent with Immunity 0.0 - 9.9 Consistent with Immunity >9.9 Performed At: [address] [id number] Carlos Bender PhD Ph:[phone] Performed By: #### 9 [id number], [id number], [id number] #### [facility] (DEFAULT) [address] [place] [address] Measles/Mumps/Rubella Immuni ty LCon 10-29-2023 Mumps Abs, IgG LC <9.0 Low Immune >10.9 [facility] Comment on above: Result Comment: Nega tive <9.0 Equivocal 9.0 - 10.9 Positive >10.9 A positive result generally indicates past exposure to Mumps virus or previous vaccination. Performed At: [facility] [id number] Carlos Bender PhD Ph:[phone] Performed By: #### 4 [id number], [id number], [id number] #### [facility] (DEFAULT) [address] [place] [address] Rubella Antibodies, IgG LC 25.70 index Invalid Interpretation Code Immune >0.99 [facility] Comment on above: Result Comment: Non- immune <0.90 Equivocal 0.90 - 0.99 Immune >0.99 Performed By: #### 5 [id number], [id number], [id number] #### [facility] (DEFAULT) [address] [place] [address] Rubeola Ab, IgG, EIA LC >300.0 Invalid Interpretation Code Immune >16.4 [facility] Comment on above: Result Comment: Nega tive <13.5 Equivocal 13.5 - 16.4 Positive >16.4 Presence of antibodies to Rubeola is presumptive evidence of immunity except when acute infection is suspected. Performed By: #### 3 [id number], [id number], [id number] #### [facility] (DEFAULT) [address] [place] [address] Nicotine Metabolite, Urine L Con 10-29-2023 Cotinine LC Negative Invalid Interpretation Code [id number] [facility] Comment on above: Result Comment: Perf ormed At: [facility] [place] [address] [place], [place] [id number] Alec Martin PhD Ph:[phone] Performed By: #### 1 [id number], [id number] #### [facility] (DEFAULT) [address] [place] [address] Drug Test Panel 10on 024 Drug Screen Complete Collected Normal [facility] Comment on above: Performed By: #### 1 [id number], [id number] #### [facility] (DEFAULT) [address] [place] [address] Encounters Encounter Date Encounter Type Care Provider Facility Start: 10-18-2024 End: 10-18-2024 ambulatory [facility] Start: 10-18-2024 End: 10-18-2024 Encounter for other preprocedural examination [facility] Start: 10-28-2023 End: 10-29-2023 ambulatory Bobby Reyes Facility:[facility] Payers Date Payer Category Payer Unknown [id number] Progress note 10-18-2024 Note Date & Type [...] to call me back with preferred pharmacy. [facility] Progress note 10-18-2024 Note Date & Type Note Facility 10-18-2024 [facility] Note Chief Complaint: Establish [...] an as-needed basis Lise Hidalgo MD, MPH, [facility], [facility], [facility] Interventional Cardiology Pager Email: [email or web address] ADDENDUM: 10/19/2024 Echocardiogram reviewed; ejection fraction is [...] discontinue Atenolol particularly (more content not included)... [facility] Summary Purpose Family History No Family History Records FoundNo Family History Records Found Advance Directives No Advanced Directives Records FoundNo Advanced Directives Records Found Additional Source Comments (unrecognized sect ion and content) No Status Records FoundNo Status Records Found INFORMATION SOURCE (unrecogn ized section and content) DATE CREATED AUTHOR 11/01/2023 [facility] DATE CREATED AUTHOR AUTHOR'S ORGANIZ ATION 10/20/2024 [facility] FOR RECORDS PERTAINING TO PATIENTS WHO [...] BE BASED ON THE PRIMARY CLINICAL RECORDS. [employer] provides no warranty or guarantee of the accuracy or completeness of information in this document.
== END 2024-12-31 09:53 | disposition home or self-care (01) ==
LOC: EC 09:52
PROVIDERS: Visit Provider Orthopaedic Surgery
DX: S52.612D Displaced fracture of left ulna styloid process, subsequent encounter for closed fracture with routine healing (principal); S52.572D Other intraarticular fracture of lower end of left radius, subsequent encounter for closed fracture with routine healing
CPT/HCPCS: 73110